=== PATIENT | female | born 1980 | race Caucasian/White ===

== ENCOUNTER 2017-10-26 16:34 | Emergency (ER) | payer OTHER ==
[~2017-10-26] VITALS: Ht 157.5 cm; Wt 65.3 kg
--- NOTE | 2017-10-26 17:00 | NUR ---
WEEKS -STARTED PILLS 22JAN WITH HEAVY BLEEDING TODAY. LMP-08/24/17. VSS. SAFETY AND COMFORT MEASURES PROVIDED. WILL MONITOR.
--- NOTE | 2017-10-26 17:20 | NUR ---
IV ACCESS STARTED. BLOOD DRAWN FOR LABS. MEDICATED ORDERED.
[2017-10-26 17:27] LABS: BASOPHILS % (AUTO) 0.4 % (0.0-2.0); EOSINOPHILS # (AUTO) 0.2 /CMM (0.0-0.7); EOSINOPHILS % (AUTO) 1.9 % (0.0-6.0); HEMATOCRIT 34 % (33-45); HEMOGLOBIN 11.8 g/dL (11.5-14.8); LYMPHOCYTES # (AUTO) 1.7 /CMM (0.8-4.8); LYMPHOCYTES % (AUTO) 20.1 % (20.0-44.0); MEAN CORPUSCULAR HEMOGLOBIN 28 PG (26.0-33.0); MEAN CORPUSCULAR HGB CONC 34 g/dl (31.0-36.0); MEAN CORPUSCULAR VOLUME 82 fL (82-100); MONOCYTES # (AUTO) 0.8 /CMM (0.1-1.30); NEUTROPHILS # (AUTO) 5.7 /CMM (1.8-8.9); NEUTROPHILS % (AUTO) 68.6 % (43.0-81.0); PLATELET COUNT (AUTO) 306 /CMM (150-450); RDW COEFFICIENT OF VARIATION 12.7 (11.5-15.0); RED BLOOD CELL COUNT(AUTO) 4.17 MIL/uL (4.0-5.2); WHITE BLOOD COUNT (AUTO) 8.4 K/uL (4.3-11.0)
[2017-10-26] MEDS ORDERED: IV NS 0.9% 1,000 ML BAG IV ONE (17:30)
[2017-10-26 17:39] LABS: CREATININE 0.7 mg/dL (0.6-1.3); POTASSIUM 4.2 mmol/L (3.5-5.1)
[2017-10-26 17:42] LABS: INR 0.92 (0.85-1.15)
[2017-10-26 17:45] LABS: ALBUMIN 3.6 g/dL (3.4-5.0); BILIRUBIN,DIRECT 0.1 mg/dL (0.0-0.2); BILIRUBIN,TOTAL 0.4 mg/dL (0.2-1.0); TOTAL PROTEIN, SERUM 7.3 g/dL (6.4-8.2)
--- NOTE | 2017-10-26 18:31 | NUR ---
PER LAB, PATIENT NOT A CANDIDATE FOR RHOGAM. PT IS RH POSITIVE
--- NOTE | 2017-10-26 19:27 | NUR ---
Patient discharged to home in stable condition. Written and verbal after care instructions given. Patient verbalizes understanding of instruction.IV removed. Catheter intact and site benign. Pressure and 4x4 applied to site. No bleeding noted.
[2017-10-26 19:28] VITALS: BP 111/70
== END 2017-10-26 19:29 | disposition home or self-care (01) ==
LOC: ER 16:37
DX: O03.9 Complete or unspecified spontaneous abortion without complication (principal)
CPT/HCPCS: 36415; 76856; 80048; 80076; 84702; 85025; 85730; 96360; 99285; A4606; J7030; Z7610

== ENCOUNTER 2018-04-05 20:05 | Emergency (ER) | payer OTHER ==
[~2018-04-05] VITALS: Ht 157.5 cm; Wt 64.4 kg
[2018-04-05 20:45] VITALS: BP 100/74
--- NOTE | 2018-04-05 22:08 | NUR ---
Called fr ER [facility] to for further eval by , no answer.
--- NOTE | 2018-04-05 22:13 | NUR ---
2nd call for pt for further evaluation by MD. No answer.
--- NOTE | 2018-04-05 22:21 | NUR ---
3RD ATTEMPT, CALLED PT W/ NO ANSWER. PT LWBS.
--- NOTE | 2018-04-05 22:24 | NUR ---
CALLED AGAIN X3; NOT IN LOBBY OR OUTSIDE ER.
== END 2018-04-05 22:25 | disposition left against medical advice (07) ==
LOC: ER 20:12
DX: R10.9 Unspecified abdominal pain (principal); Z53.21 Procedure and treatment not carried out due to patient leaving prior to being seen by health care provider
CPT/HCPCS: A4606; Z7610

== ENCOUNTER 2022-10-21 12:12 | Emergency (ER) | payer OTHER ==
[~2022-10-21] VITALS: Ht 157.5 cm; Wt 68.0 kg
[2022-10-21] MEDS ORDERED: IV NS 0.9% 1,000 ML BAG IV ONE (12:30)
[2022-10-21] MEDS ORDERED: ONDANSETRON HCL/PF 4 MG/2 ML VIAL IVP ONE (12:30)
[2022-10-21] MEDS ORDERED: ONDANSETRON HCL/PF 4 MG/2 ML VIAL ONE (12:36)
--- NOTE | 2022-10-21 12:53 | NUR ---
IV INSERTED. R AC #[id number].
--- NOTE | 2022-10-21 13:16 | NUR ---
urine sample collected.
[2022-10-21 13:19] LABS: BASOPHILS # (AUTO) 0.1 K/uL (0.0-0.2); BASOPHILS % (AUTO) 1.3 % (0.0-2.0); EOSINOPHILS % (AUTO) 1.6 % (0.0-6.0); HEMATOCRIT 39 % (33-45); HEMOGLOBIN 12.6 g/dL (11.5-14.8); LYMPHOCYTES # (AUTO) 1.3 K/uL (0.8-4.8); MEAN CORPUSCULAR HGB CONC 33 g/dl (31.0-36.0); MEAN CORPUSCULAR VOLUME 85 fL (82-100); MONOCYTES # (AUTO) 0.8 K/uL (0.1-1.30); MONOCYTES % (AUTO) 11.5 % (2.0-12.0); NEUTROPHILS % (AUTO) 68.6 % (43.0-81.0); PLATELET COUNT (AUTO) 258 K/uL (150-450); RED BLOOD CELL COUNT(AUTO) 4.55 MIL/uL (4.0-5.2); WHITE BLOOD COUNT (AUTO) 7.4 K/uL (4.3-11.0)
[2022-10-21] MEDS ORDERED: ONDA4TAB11 PO (13:31)
[2022-10-21] MEDS ORDERED: KETO10TA2 PO (13:31)
[2022-10-21 13:41] LABS: CREATININE 0.8 mg/dL (0.6-1.3); POTASSIUM 3.7 mmol/L (3.5-5.1)
--- NOTE | 2022-10-21 14:04 | NUR ---
TAKEN TO CT VIA RENA
[2022-10-21 17:04] VITALS: BP 111/72
== END 2022-10-21 17:05 | disposition home or self-care (01) ==
LOC: ER 12:19
DX: S09.90XA Unspecified injury of head, initial encounter (principal); R51.9 Headache, unspecified; R11.0 Nausea; R42 Dizziness and giddiness; F07.81 Postconcussional syndrome; Z88.0 Allergy status to penicillin; Z88.8 Allergy status to other drugs, medicaments and biological substances; Z79.899 Other long term (current) drug therapy; V09.9XXA Pedestrian injured in unspecified transport accident, initial encounter; Y93.89 Activity, other specified; Y92.89 Other specified places as the place of occurrence of the external cause; Y99.8 Other external cause status
CPT/HCPCS: 99285; 96374; 70450; 96361; 85025; 80048; 84703; 36415; J2405; J7030